=== PATIENT | male | born 1965 | race Caucasian/White ===

== ENCOUNTER 2016-08-06 08:25 | Emergency (ER) | payer BC, OTHER ==
[2016-08-06] MEDS ORDERED: HYDROMORPHONE HCL 1 MG/ML SYRINGE ONE ×2 (08:34→09:36)
[2016-08-06] MEDS ORDERED: ONDANSETRON 4 MG/2ML 2 ML VIAL ONE (08:34)
[2016-08-06 08:58] LABS: ABSOLUTE NEUTROPHIL COUNT 4.7 K/mm3 (1.8-7.7); BASO # 0.1 K/mm3 (0.0-0.2); BASO % 0.9 % (0.2-1.0); EOS # 0.3 (0.0-0.5); EOS % 3.6 % (0.9-2.9); HEMATOCRIT 44.2 % (32.0-52.0); HEMOGLOBIN 15.3 gm/l (14.0-18.0); IMM NEUT # 0.1 K/mm3 (0-0.2); IMM NEUT% 0.9 % (0-1); LYMPH # 3.1 (1.0-4.8); LYMPH % 34.5 % (15-45); MEAN CELL VOLUME 97.6 fl (80.0-94.0); MEAN CORPUSCULAR HEMOGLOBIN 33.8 pg (27.0-31.0); MEAN CORPUSCULAR HGB CONC 34.6 g/dl (33.0-37.0); MEAN PLATELET VOLUME 10.5 fl (7.4-10.4); MONO # 0.7 (0.0-0.8); MONO % 7.9 % (4-12); NEUT % 52.2 % (43-75); PLATELET COUNT 268 K/mm3 (130-400); RED CELL DISTRIBUTION WIDTH 13.9 % (11.5-14.5)
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
[2016-08-06] MEDS ORDERED: CEFAZOLIN SODIUM 1 GRAM PREMIX 50 ML IV ONE (10:08)
[2016-08-06] MEDS ORDERED: DIPHTH,PERTUSS(ACELL),TET VAC 0.5 ML VIAL IM V ONE (14:20)
== END 2016-08-06 10:45 | disposition still patient (30) ==
LOC: ED 08:25
DX: S61.402A Unspecified open wound of left hand, initial encounter (principal); S62.307B Unspecified fracture of fifth metacarpal bone, left hand, initial encounter for open fracture; Z23 Encounter for immunization; W32.0XXA Accidental handgun discharge, initial encounter; Y92.9 Unspecified place or not applicable
CPT/HCPCS: 90715; 85025; 73130; 96375 ×2; 96376; 99284; 96365; 99285; J0690; J1170 ×2; J2405